=== PATIENT | male | born 1970 | race Caucasian/White ===

== ENCOUNTER 2019-01-21 15:36 | Outpatient (CLI) | payer OTHER, SELFPAY ==
[2019-01-22 08:49] LABS: PSA, Screening 0.2 ng/ml (0-2.5)
== END 2019-01-21 15:56 ==
PROVIDERS: Visit Provider Nurse Practitioner Gerontology
DX: N40.1 Benign prostatic hyperplasia with lower urinary tract symptoms (principal); Z12.5 Encounter for screening for malignant neoplasm of prostate
CPT/HCPCS: 36415; 84153

== ENCOUNTER 2019-01-21 16:50 | Outpatient (REF) | payer OTHER, SELFPAY ==
[2019-01-21 22:16] LABS: Bacteria Rare HPF (Negative); C & S Indicated? Yes; Crystals Few Amorphous HPF (Negative); Epithelial Cells Rare HPF (Negative); Mucus Trace (Negative); Other Cells Negative (Negative); RBC 0-2 (0-2)
== END 2019-01-21 17:10 ==
LOC: LBN 16:50
PROVIDERS: Visit Provider Nurse Practitioner Gerontology
DX: R31.29 Other microscopic hematuria (principal)
CPT/HCPCS: 87077; 81015; 87086; 87186

== ENCOUNTER 2019-02-22 01:42 | Outpatient (CLI) | payer OTHER, SELFPAY ==
--- NOTE | 2019-02-22 10:15 | DI.CT_ITS ---
SYMPTOM/DIAGNOSIS: MICRO HEM, FLANK PAIN CYST LEFT KIDNEY CT ABDOMEN AND PELVIS WITHOUT AND WITH CONTRAST: No priors for comparison. There is diffuse decreased attenuation of the liver consistent with fatty infiltration. There is bilateral nephrolithiasis. No ureterolithiasis or hydronephrosis is present. Venous imaging of the abdomen and pelvis was performed following contrast administration. The visualized lung bases are clear There is homogeneous enhancement of the liver. No evidence of a suspicious hepatic mass is seen. The portal, superior mesenteric and splenic veins are patent. The gallbladder is negative. There is no biliary ductal dilatation. The pancreas and spleen are unremarkable. There is a 3.2 x 2.8 cm hypodense mass seen in the left adrenal gland. Fat density is seen internally. There is a 1.6 x 1.2 cm left adrenal nodule. The kidneys show normal and symmetric enhancement. There are bilateral hypodense lesions seen within the kidneys bilaterally. They are too small for further characterization but it likely reflects cysts. The urinary bladder is intact. There is apparent thickening of the wall of the urinary bladder however, the urinary bladder is incompletely distended. The reproductive organs are unremarkable. The bowel shows no evidence of obstruction or inflammation. There is a normal appendix present. The abdominal aorta is of normal caliber No significant abdominal or pelvic adenopathy, ascites or pneumoperitoneum is present. Note is made of a small fat containing umbilical hernia. Degenerative changes are seen in the spine. Delayed images of the renal collecting system were performed. No filling defects are seen in the renal collecting system. The urinary bladder is intact. No filling defects are seen in the incompletely distended urinary bladder. IMPRESSION: 1. Nephrolithiasis, no evidence of hydronephrosis 2. Bilateral adrenal masses. These may represent benign adenoma. Follow up as clinically appropriate. 3. Fatty infiltration of the liver 4. Incompletely distended urinary bladder. No gross abnormality is identified. If there is continued concern renal ultrasound or cystoscopy should be considered.
[2019-02-22] MEDS: Omnipaque 350 MG/ML 100 ML BTL IJ (10:16)
== END 2019-02-22 02:02 ==
PROVIDERS: Visit Provider Nurse Practitioner Gerontology
DX: R31.29 Other microscopic hematuria (principal); R10.32 Left lower quadrant pain; K76.0 Fatty (change of) liver, not elsewhere classified; N20.0 Calculus of kidney; E27.9 Disorder of adrenal gland, unspecified; N32.89 Other specified disorders of bladder
CPT/HCPCS: 74178; J3490

== ENCOUNTER 2019-04-18 11:40 | Outpatient (REF) | payer OTHER, SELFPAY ==
[2019-04-20 11:42] LABS: Metanephrines, U 175 mcg/24 h; Normetanephrine, U 347 mcg/24 h; Total Metanephrines, U 522 mcg/24 h; Urine Volume 1800 mL
[2019-04-20 16:01] LABS: Cortisol, U 83 mcg/24 h (3.5-45); Urine Volume 1800 mL
== END 2019-04-18 12:00 ==
LOC: LBN 11:40
PROVIDERS: Visit Provider Urology
DX: E27.9 Disorder of adrenal gland, unspecified (principal)
CPT/HCPCS: 81050; 82530; 83789; 83835

== ENCOUNTER 2019-08-01 02:22 | Outpatient (CLI) | payer OTHER, SELFPAY ==
--- NOTE | 2019-08-01 12:58 | DI.US_ITS ---
EXAM: US EXTREMITY VENOUS BI CLINICAL HISTORY: EDEMA R60.9, R/O DVT FOR BILAT LEG SWELLING TECHNIQUE: Bilateral lower extremity venous ultrasound performed using grayscale, color-flow, and sp ectral Doppler analysis. COMPARISON: No exams were available for comparison FINDINGS: The bilateral common femoral, femoral and popliteal veins demonstrate normal compressibility, augment ation, and color Doppler. The posterior tibial veins are patent. The saphenofemoral junctions are un remarkable. IMPRESSION: Right: Negative for DVT Left: Negative for DVT
== END 2019-08-01 02:42 ==
PROVIDERS: PCP Occupational Therapist; Visit Provider Occupational Therapist
DX: R22.41 Localized swelling, mass and lump, right lower limb (principal); R22.42 Localized swelling, mass and lump, left lower limb
CPT/HCPCS: 93970

== ENCOUNTER 2020-11-05 02:00 | Outpatient (CLI) | payer OTHER, SELFPAY ==
--- NOTE | 2020-11-05 | DI.US_ITS ---
EXAM: US SOFT TISSUE HEAD OR NECK CLINICAL HISTORY: LUMP ABOVE CLAVICLE SOFT TISSUE LT NECK,[id number],R22.1. TECHNIQUE: Ultrasound was performed using standard protocol. COMPARISON: US US EXTREMITY VENOUS BI from 08/01/2019 FINDINGS: Ultrasound assessment of the area of clinical concern in the left supraclavicular region was performe d. Both sides of the neck were scanned for lymph nodes. In the left supraclavicular region there is an 11 x 4 x 10 millimeter lymph node. This corresponds t o palpable finding Slightly higher up in the left side of the neck there is a 10 x 5 x 6 millimeter benign-appearing lym ph node. Slightly higher up in the neck and there is another 7 x 3 x 7 millimeter benign-appearing l ymph node. No abnormal fluid collection In the right-sided neck there is an 8 x 5 x 8 millimeter lymph node in the supraclavicular region. T here is also a 13 x 5 x 6 millimeter lymph node at the mid right neck level. Another 8 x 5 by a 6 mi llimeter lymph node is noted slightly higher up in the right side. No abnormal fluid collection in t he right side of the neck IMPRESSION: Small lymph nodes noted on both sides of the neck. Indication, there is an 11 x 4 x 10 millimeter ly mph node in left supraclavicular region. This appears to correspond to what the patient is feeling. DATA REPOSITORY:
== END 2020-11-05 02:01 ==
LOC: DI 02:00
PROVIDERS: PCP Nurse Practitioner Family; Visit Provider Nurse Practitioner Family
DX: R22.1 Localized swelling, mass and lump, neck (principal)
CPT/HCPCS: 76536

== ENCOUNTER 2023-01-26 09:07 | Day surgery (SDC) | payer OTHER, SELFPAY ==
--- NOTE | 2023-01-25 20:22 | PDOC.DSDIS_ITS ---
Date of service: 01/26/23 Time of Service: 11:14 Discharge Plan Disposition Patient Disposition: Home Condition: Good Discharge Details Reason For Visit: Colonoscopy Attending Provider: Jeffery Guadalupe Primary Care Provider: Benjy Gamez Hornick Meds and New Rx's Prescriptions: Continued diazepam [Valium] 5 mg tablet 5 mg PO PRN PRN (Reason: pre-ct anxiety) Qty: 2 0RF Rx Instructions: Take 1 tab [address] May repeat before scan if needed. 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 carboxymethylcellulose sodium 0.5 % dropperette 1 drp OP 4-6XD PRN diclofenac sodium 1 % gel 4 gm TP QID latanoprost 0.005 % drops 1 drp OP QPM lidocaine 5 % adhesive patch,medicated 1 patch TP DAILY sildenafil 100 mg tablet 100 mg PO DAILY PRN naloxone 4 mg/actuation spray,non-aerosol 1 spray YARELIS ONCE PRN timolol maleate 0.5 % drops 1 drp OP BID buprenorphine-naloxone 8-2 mg tablet, sublingual See Rx Instructions .ROUTE .COMPLEX Rx Instructions: 18mg; aspirin 81 mg tablet,delayed release (DR/EC) 81 mg PO DAILY ascorbate calcium (vitamin C) 500 mg tablet 500 mg PO DAILY vitamin A 2,400 mcg capsule 2,400 mcg PO DAILY B-complex with vitamin C Capsule 1 cap PO DAILY cholecalciferol (vitamin D3) 25 mcg (1,000 unit) capsule 25 mcg PO DAILY turmeric 400 mg capsule 400 mg PO DAILY coenzyme Q10 10 mg capsule 10 mg PO ONCE alprazolam 0.5 mg tablet 0.5 mg PO DAILY albuterol sulfate 90 mcg/actuation HFA aerosol inhaler 2 puff inhalation Q6H PRN clindamycin phosphate 1 % solution 1 applic topical BID PRN lisinopril 30 mg tablet 15 mg PO BID magnesium oxide 420 mg tablet 420 mg PO DAILY metformin 500 mg tablet See Rx Instructions .ROUTE BID Rx Instructions: 500 mg in am, 1000 mg in evening. omeprazole 20 mg capsule,delayed release(DR/EC) 20 mg PO BID omega 2-xow-xsg-fish oil [Fish Oil] 300-1,000 mg capsule 1 cap PO DAILY varenicline 1 mg tablet 1 mg PO BID Rx Instructions: for smoking cessation Discontinued polyethylene glycol 3350 17 gram/dose powder 238 g PO ONCE Qty: 238 0RF Rx Instructions: take per colonoscopy instructions bisacodyl [Dulcolax (bisacodyl)] 5 mg tablet,delayed release (DR/EC) 5 mg PO ONCE Qty: 4 0RF Rx Instructions: take per colonoscopy instructions Discharge Instructions Instructions: Colorectal Polyps (GEN) Additional Instructions: Leticia, we were able to complete your colonoscopy today without any difficulty. I did find 3 polyps. I removed them all completely. When I have the results of the pathology report, I will be in touch regarding the next steps. 1. If tolerated, consume a soft, low fiber diet for 1-2 days. 2[address] Do not drive, drink alcohol, operate machinery, make critical decisions, or do activities that require coordination or balance for 24 hours. 3. Because air was put into your colon during the procedure, expelling air from your rectum (passing gas or farting) is normal. 4. You may not have a bowel movement for 1-3 days because of the colonoscopy prep. This is normal. 5. Go directly to the emergency room if you notice any of the following: Develop chills (warm to touch), or if you have a thermometer and your temperature is above 101 Difficulty breathing or difficultly swallowing Persistent vomiting Severe abdominal pain, other than gas cramps Severe chest pain Black, tarry stools Any bleeding ? exceeding one tablespoon 6. Call your physician if the site where your intravenous was started becomes red, swollen, painful, and warm to touch. 7. Your physician has reviewed your pre-procedure medications. Please continue to take those medications as previously ordered. You will be given specific information/education regarding any changes to your medications before leaving. Activity:: Activity as Tolerated Diet:: As Tolerated Discharge Orders Discharge Orders: Discharge Order (Routine); Ordered 01/25/23 Ordered By: Jeffery Guadalupe DS: Diagnosis Discharge Diagnosis (1) Screening for colon cancer: Status: Acute Asessment and Plan: I will follow-up on polypectomy results
--- NOTE | 2023-01-25 20:30 | COLE_ITS ---
Date of service: 01/26/23 Time of Service: 11:16 Colonoscopy Report Date of procedure: 01/26/23 Pre-op diagnosis general: Screening colonoscopy Post-op diagnosis procedure note: other (Colon polyps) Procedure: Colonoscopy with polypectomy Surgeon: Jeffery Guadalupe Anesthesia Type: General:No Airway Estimated blood loss (mL): 10 Pathology: other (Colon polyps at 100 cm, 90 cm, 60 cm) Complications: None Disposition: same day Indications: Leticia is a 52-year-old , who is here for his next screening colonoscopy Prep: Miralax/Dulcolax Procedure Start Time: 10:34 Procedure End Time: 10:57 Retraction Time: 17 Findings: Colon polyps at 100, 90, and 60 cm Procedure Description: After the induction of monitored anesthetic care, and with the patient in left lateral decubitus position, I began by performing an external anorectal exam.? Perineum and skin were normal, as was the anal verge.? There was no evidence of external hemorrhoids.? Next, I performed a digital rectal exam.? I did not appreciate any abnormal findings.? Next, I advanced a colonoscope into the rectal vault.? I performed retroflexion.? This was normal.? Using insufflation, I then advanced the colonoscope beyond the rectal folds and into the sigmoid c olon before advancing towards the cecum.? The quality of the prep was adequate.? The scope was noted to be in the cecum by identification of the ileocecal valve and appendiceal orifice.? I then began withdrawing the colonoscope using repeated irrigation as necessary for full evaluation of the colonic mucosa. Around 100 cm from the anal verge I identified a 0.5 cm polyp. ?It appeared sessile in character. ?I was able to remove this with a cold forcep polypectomy. ?I examined the site, and there was minimal bleeding. ?Once this was completed, I continued to withdraw the scope and examine the remainder of the colonic mucosa.? I also found polyps at 90 cm, and 60 cm. The polyp at 90 was 0.25 cm. This was taken into bites. The first bite, I suspect, with normal colonic mucosa. Second bite completed the polypectomy. There was minimal bleeding here. The polyp at 60 cm was approximately 0.25 cm. This was also sessile, and also removed with cold forceps polypectomy. Once the scope was withdrawn to the level of the rectum, great care was taken to examine portions of the rectal folds.? Finally, the scope was withdrawn and the patient was brought to the same-day surgery recovery unit as the anesthetic wore off. ?The findings and instructions were shared with the patient prior to discharge.
[2023-01-26 09:20] VITALS: BP 146/95; PULSE 77; RESP 16; TEMP 36.5; O2SAT 98
[2023-01-26] MEDS: Lactated Ringers 1,000 ML 80 ML IV (10:05)
--- NOTE | 2023-01-26 10:13 | W.ANESPRE ---
General Info Date of Service Date Performed: 01/26/23 Height: 5 ft 6 in Weight: 115.5 kg Body Mass Index (BMI): 41.1 Surgical Procedure: Operation Date: 01/26/23 10:35 Proposed Procedure Side Surgeon p Colonoscopy Jeffery Guadalupe MD Actual Procedure Side Surgeon p Colonoscopy Jeffery Guadalupe MD Pre-Op Diagnosis Post-Op Diagnosis Colonoscopy Meds Allergies and Home Medications Allergies Allergy/AdvReac Type Severity Reaction Status Date / Time No Known Allergies Allergy Verified 01/26/23 09:33 Home Medication Medication Instructions Recorded carboxymethylcellulose sodium 0.5 1 drp ophthalmic (eye) 4-6XD PRN 01/21/19 % eye drops in a dropperette diazepam 5 mg tablet (Valium) 5 mg PO PRN PRN pre-ct anxiety #2 01/21/19 tabs diclofenac sodium 1 % topical gel 4 gm topical QID 01/21/19 latanoprost 0.005 % eye drops 1 drp ophthalmic (eye) QPM 01/21/19 lidocaine 5 % topical patch 1 patch topical DAILY 01/21/19 naloxone 4 mg/actuation nasal spray 1 spray intranasal ONCE PRN 01/21/19 sildenafil 100 mg tablet 100 mg PO DAILY PRN 01/21/19 timolol maleate 0.5 % eye drops 1 drp ophthalmic (eye) BID 01/21/19 albuterol sulfate 90 mcg/actuation 2 puff inhalation Q6H PRN 12/26/22 aerosol inhaler alprazolam 0.5 mg tablet 0.5 mg PO DAILY 12/26/22 clindamycin phosphate 1 % topical 1 applic topical BID PRN 12/26/22 solution lisinopril 30 mg tablet 15 mg PO BID 12/26/22 magnesium oxide 420 mg tablet 420 mg PO DAILY 12/26/22 metformin 500 mg tablet See Rx Instructions .Route BID 12/26/22 omega 0-afn-iux-fish oil 300 1 cap PO DAILY 12/26/22 mg-1,000 mg capsule (Fish Oil) omeprazole 20 mg capsule,delayed 20 mg PO BID 12/26/22 release varenicline 1 mg tablet 1 mg PO BID 12/26/22 aspirin 81 mg tablet,delayed 81 mg PO DAILY 01/12/23 release buprenorphine 8 mg-naloxone 2 mg See Rx Instructions .Route .COMPLEX 01/12/23 sublingual tablet B-complex with vitamin C 1 cap PO DAILY 01/13/23 ascorbate calcium (vitamin C) 500 500 mg PO DAILY 01/13/23 mg tablet cholecalciferol (vitamin D3) 25 25 mcg PO DAILY 01/13/23 mcg (1,000 unit) capsule coenzyme Q10 10 mg capsule 10 mg PO ONCE 01/13/23 turmeric 400 mg capsule 400 mg PO DAILY 01/13/23 vitamin A 2,400 mcg capsule 2,400 mcg PO DAILY 01/13/23 Current Visit Medications: Current Medications Generic Name Dose Route Start Last Admin Trade Name Freq PRN Reason Stop Dose Admin Hyoscyamine Sulfate 0.125 mg 01/25/23 20:31 Hyoscyamine 0.125 Mg Sl/Oral/Chew SL 02/24/23 20:30 DIRECTED PRN Ringer's Solution 1,000 mls @ 80 mls/hr 01/26/23 06:00 IV 02/24/23 23:59 INFUSION [facility] IV Miscellaneous Supplies 1 each 01/26/23 06:00 Iv Access IV 02/24/23 23:59 DIRECTED LIZZY Ondansetron HCl 4 mg 01/25/23 20:31 Ondansetron 4 Mg/2 Ml Vial IVP 02/24/23 20:30 Q4H PRN PRN Nausea / Vomiting Sodium Chloride 0 ml 01/26/23 06:00 Normal Saline Flush 10 Ml Syr IV 02/24/23 23:59 PRN PRN Sodium Chloride 0 ml 01/26/23 06:00 Normal Saline 10 Ml Vial IJ 02/24/23 23:59 DIRECTED PRN Sterile Water 0 ml 01/26/23 06:00 Water,Injection,Sterile 10 Ml Vial IJ 02/24/23 23:59 DIRECTED PRN PFSH Active Problems Active Problems: Problem Status Onset Code 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 Microscopic hematuria R31.29 Kidney cysts N28.1 Adrenal mass E27.9 Morbid obesity E66.01 Screening for colon cancer Z12.11 Medical History Medical History (Updated 01/26/23 @ 09:36 by Millie Andrews RN) Alcohol abuse, in remission Anserine bursitis Chronic pain Chronic post-traumatic stress disorder (PTSD) Closed fracture of ankle Degenerative arthritis of spine Diverticulosis Hiatal hernia Hypogonadism male Impulse control disorder Injury of muscle of lower leg Lower back pain TARAN (obstructive sleep apnea) Osteomalacia Pre-diabetes Restless leg Traumatic glaucoma Surgical History Surgical History (Updated 01/26/23 @ 09:36 by Millie Andrews RN) History of colonoscopy with polypectomy (~2019) History of removal of calculus of renal pelvis through percutaneous nephrostomy Tobacco Smoking/Tobacco Use Status: Current every day Tobacco Type: cigarettes Smoking packs per day: 1 Smoking cigarettes per day: 20.0 Alcohol Alcohol Intake: current Alcohol intake frequency: a few times a week Substance Use Substance use: Daily Substance use type: marijuana Details: smoked marijuana 01/25/23 alcohol t-3, 4 hard liquor drinks Vital Signs and Lab Results Vital Signs Most Recent Vital Signs in EMR: Most Recent Vital Signs Temp Pulse Resp BP Pulse Ox 36.5 C 77 16 146/95 H 98 01/26/23 09:20 01/26/23 09:20 01/26/23 09:20 01/26/23 09:20 01/26/23 09:20 Lab Results Blood Type / Crossmatch: No Data to Display Complete Blood Count: No Data to Display Complete Metabolic Panel: No Data to Display Liver Function Panel: No Data to Display Coagulation Panel: No Data to Display Cardiac Panel: No Data to Display Arterial Blood Gas: No Data to Display Venous Blood Gas: No Data to Display Pancreas Panel: No Data to Display Thyroid Panel: No Data to Display Infectious Disease: No Data to Display Blood Cultures: No Data to Display Toxicology Panel: No Data to Display Anesthesia Assessment and Plan Anesthesia History Personal History: No History of Anesthesia Complications Family History: No Family History of Anesthesia Complications Exercise Tolerance Exercise Tolerance: Metabolic Equivalents>4 Pertinent Negatives Pertinent Negatives: No Symptoms of GERD, No Major Cardiovascular Symptoms or Complaints and No Major Pulmonary Symptoms or Complaints Cardiac & Pulmonary Exam Cardiac Exam: Normal S1/S2 Heart Sounds Pulmonary Exam: Clear Bilateral Breath Sounds Implantable Cardiac Device Does patient have a Pacemaker or an ICD?: No Airway Exam Known Difficult Airway: No Mallampati Class: 1 Mouth Opening: Normal (> 3cm) Thyromental Distance: Less than 3 cm Neck Range of Motion: Full ROM Neck Circumference: Thick Teeth Condition: Normal Dentition ASA Classification ASA Score: ASA 3 Emergency Case?: No NPO Status NPO Status: NPO Clears >2 hours, Solids >8 hours Anesthesia Plan Resuscitation Status: Full Code Anesthesia Technique: General Anesthesia Airway Planned: Natural Airway Monitors Used: Standard Monitors
[2023-01-26 10:15] VITALS: BMI 41.1
--- NOTE | 2023-01-26 10:42 | BOWEL_PTH ---
PATIENT: Leticia Delgado LOC: [facility] U#:[id number] AGE/SX: 52/M ROOM: RE01/26/[address]: Jeffery Guadalupe MD : 1970 BED: DIS: 01/26/2023 SPEC #: [id number] RECD: 01/26/23 13:00 STATUS: SAMEER REQ #: [id number] LAUREL: 01/26/23 10:[address]: Jeffery Guadalupe DEPT: Surgical Specimen RECD BY: Isabela Beavers ENTERED: 01/26/23 13:01 SP TYPE: Bowel OTHR DR: Benjy Gamez Tissues: 1 - BIOPSY BOWEL 2 - BIOPSY BOWEL 3 - BIOPSY BOWEL Procedures: GROSS AND MICRO LEVEL 4 Comments: [id number]
[2023-01-26 11:00] VITALS: BP 120/75; PULSE 82; RESP 18; TEMP 37; O2SAT 100
[2023-01-26 11:27] VITALS: BP 127/77; PULSE 62; RESP 18; TEMP 36.7; O2SAT 97
--- NOTE | 2023-01-26 11:49 | W.ANESPOSTOP ---
Postoperative Evaluation Date, Time and Location Date Performed: 01/26/23 Time Performed: 11:49 Patient Location: Day Surgery Unit Vital Signs Most Recent Imported Vital Signs: Most Recent Vital Signs Temp Pulse Resp BP Pulse Ox 36.7 C 62 18 127/77 97 01/26/23 11:27 01/26/23 11:27 01/26/23 11:27 01/26/23 11:27 01/26/23 11:27 Pain Score Most Recent Pain Score: Most Recent Pain Score Pain Level 0 01/26/23 11:27 Assessment Mental Status: Awake (Alert & Oriented to Patient Baseline) Airway and Respiratory Function: Patent airway with normal (patient baseline) respiratory exam Cardiovascular Function: Hemodynamically Stable Hydration Status: Adequately Hydrated Nausea & Vomiting: No Nausea or Vomiting Pain: Pt. Denies Any Pain Peripheral Nerve Block: Patient did not receive a nerve block
== END 2023-01-26 09:08 | disposition home or self-care (01) ==
LOC: SUR 09:09
PROVIDERS: PCP Nurse Practitioner Family; Visit Provider Surgery
PROC: 0DJD8ZZ Inspection of Lower Intestinal Tract, Via Natural or Artificial Opening Endoscopic (ICD-10-PCS; CPT 45378; principal; 2023-01-26 10:30)
DX: Z12.11 Encounter for screening for malignant neoplasm of colon (principal); K63.5 Polyp of colon
CPT/HCPCS: 45380; 88305; J2704